=== PATIENT | female | born 1980 | race Caucasian/White ===

== ENCOUNTER 2016-12-12 16:04 | Emergency (ER) | payer MEDICAID ==
[~2016-12-12] VITALS: Ht 162.6 cm; Wt 131.5 kg
[~2016-12-12 16:04] MED LIST: CEPH-91; SULF400T11
[2016-12-12 17:00] LABS: Urine Bilirubin Negative (Negative); Urine Blood Negative /uL (Negative); Urine Color Yellow (Yellow); Urine Glucose Normal (Normal); Urine Hyaline Cast FEW /lpf (0 - 2); Urine Ketone TRACE (Negative); Urine Mucus FEW (None Seen); Urine Nitrite Negative (Negative); Urine RBC 1 /hpf (0 - 4); Urine Squamous Epithelial Cell MOD /hpf (<5); Urine Urobilinogen Normal (Negative); Urine pH 5.5 (5.0-8.0)
[2016-12-12 17:03] LABS: Basophils # (auto) 0 uL; Basophils % (auto) 0.2 % (0.0-2.0); Eosinophils # (auto) 0.1 uL; Eosinophils % (auto) 0.7 % (0.0-7.0); Hemoglobin 13.7 g/dL (12.2-16.2); Lymphocytes # (auto) 1.7 uL; Lymphocytes % (auto) 18.7 % (10.0-50.0); Mean Corpuscular Hemoglobin 30.1 pg (28.0-32.0); Mean Corpuscular Hgb Conc. 34.3 g/dL (32.0-36.0); Mean Corpuscular Volume 87.8 fL (80.0-100.0); Mean Platelet Volume 8.2 fL (6.9-10.8); Monocytes # (auto) 0.4 uL; Monocytes % (auto) 4.2 % (0.0-12.0); Neutrophils # (auto) 6.8 uL; Neutrophils % (auto) 76.2 % (37.0-80.0); Nucleated Red Blood Cells % 0.1 %; Platelet Count (auto) 210 10^3/uL (140-450); Red Cell Distribution Width 13.4 % (11.8-14.3)
[2016-12-12] MEDS ORDERED: SODIUM CHLORIDE 0.9% 500 ML IVB ONE (17:08)
[2016-12-12] MEDS ORDERED: HYDROmorphone HCL 2 MG/ML VL IV ONE (17:15)
[2016-12-12] MEDS ORDERED: ONDANSETRON HCL 4 MG/2 ML VIAL IV ONE (17:15)
[2016-12-12 17:22] LABS: Albumin 3.6 g/dL (3.4-5.0); Alkaline Phosphatase 81 U/L (45-117); Anion Gap 6 (5-15); Aspartate Aminotransferase 38 U/L (15-37); Bilirubin, Total 0.6 mg/dL (0.2-1.0); Blood Urea Nitrogen 6 mg/dL (7-18); Calcium 8.5 mg/dL (8.5-10.1); Carbon Dioxide 26 mmol/L (21-32); Chloride 107 mmol/L (98-107); GFR African American 200 mL/min; GFR Non-African American 165 mL/min; Glucose 122 mg/dL (74-106); Sodium 139 mmol/L (136-145); Total Protein 7.3 g/dL (6.4-8.2)
[2016-12-12 17:35] VITALS: BP 118/87
== END 2016-12-12 19:05 | disposition home or self-care (01) ==
LOC: ER 16:08
DX: R10.12 Left upper quadrant pain (principal); J45.909 Unspecified asthma, uncomplicated; Z90.49 Acquired absence of other specified parts of digestive tract; Z88.6 Allergy status to analgesic agent; R53.1 Weakness
CPT/HCPCS: 36415; 74176; 80053; 81001; 81025; 83690; 84484; 84702; 85025; 94761; 96361; 96374; 96375; 99285; J1170; J2405; J7040

== ENCOUNTER 2017-05-13 11:34 | Inpatient (IN) | payer MEDICAID ==
[~2017-05-13] VITALS: Ht 162.6 cm; Wt 149.0 kg
[2017-05-13 12:40] LABS: Basophils # (auto) 0 uL; Basophils % (auto) 0.4 % (0.0-2.0); Eosinophils # (auto) 0.1 uL; Hematocrit 38.2 % (36.0-46.0); Hemoglobin 13.1 g/dL (12.2-16.2); Lymphocytes # (auto) 2.8 uL; Lymphocytes % (auto) 26.6 % (10.0-50.0); Mean Corpuscular Hemoglobin 30.5 pg (28.0-32.0); Mean Corpuscular Hgb Conc. 34.2 g/dL (32.0-36.0); Mean Corpuscular Volume 89.1 fL (80.0-100.0); Monocytes # (auto) 0.5 uL; Monocytes % (auto) 5.1 % (0.0-12.0); Neutrophils % (auto) 66.9 % (37.0-80.0); Nucleated Red Blood Cells % 0.1 %; Platelet Count (auto) 200 10^3/uL (140-450); Red Blood Cells 4.28 10^6/uL (4.0-5.20); Red Cell Distribution Width 14.2 % (11.8-14.3); White Blood Cell 10.4 10^3/uL (4.4-10.8)
[2017-05-13 13:00] LABS: Albumin 3.5 g/dL (3.4-5.0); BUN/Creatinine Ratio 12.7; Calcium 8.4 mg/dL (8.5-10.1); Potassium 3.8 mmol/L (3.5-5.1)
[2017-05-13 13:03] LABS: Bilirubin, Total 0.4 mg/dL (0.2-1.0); Total Protein 7.2 g/dL (6.4-8.2)
[2017-05-13] MEDS ORDERED: SODIUM CHLORIDE 0.9% 1,000 ML IV ONE (14:05)
[2017-05-13] MEDS ORDERED: MORPHINE SULFATE 4 MG/ML SYR/VIAL IV ONE (14:15)
[2017-05-13] MEDS ORDERED: ONDANSETRON HCL 4 MG/2 ML VIAL IV ONE ×2 (14:15→21:15)
[2017-05-13 14:40] LABS: INR 0.91 (0.9-1.15); Partial Thromboplastin Time 27.3 sec (22.64-33.71); Prothrombin Time 9.9 sec (9.37-12.3)
[2017-05-13] MEDS ORDERED: ONDANSETRON HCL 4 MG/2 ML VIAL IV PRN (15:30)
[2017-05-13] MEDS ORDERED: ACETAMINOPHEN 325 MG TAB PO PRN (15:30)
[2017-05-13] MEDS: SODIUM CHLORIDE 0.9% 1,000 ML IV SCH ×3 (15:47→23:32)
[2017-05-13] MEDS: MORPHINE SULFATE 4 MG/ML SYR/VIAL IV PRN ×5 (16:31→23:52)
[2017-05-13] MEDS ORDERED: CYA100I PO (18:21)
[2017-05-13] MEDS ORDERED: PREN-96 PO (18:21)
[2017-05-13] MEDS ORDERED: ceFAZolin 1GM/50ML 50 ML IV ONE ×2 (18:46→19:45)
[2017-05-13] MEDS ORDERED: NEOSTIGMINE 1 MG/ML INJ (10mg/10ML VIAL) IV ONE (19:12)
[2017-05-13] MEDS ORDERED: GLYCOPYRROLATE 0.2 MG/ML 1ML VIAL IV ONE (19:12)
[2017-05-13] MEDS ORDERED: fentaNYL CITRATE 5 ML ONE (19:13)
[2017-05-13] MEDS ORDERED: PROPOFOL 10 MG/ML 20 ML IV ONE (19:13)
[2017-05-13] MEDS ORDERED: MIDAZOLAM HCL 1MG/1ML-2 ML VIAL ONE (19:13)
[2017-05-13] MEDS ORDERED: ROCURONIUM 10MG/ML 10ML VIAL IV ONE (19:13)
[2017-05-13] MEDS ORDERED: SUCCINYLCHOLINE CHLORIDE 20 MG/ML 10ML VIAL IV ONE (19:26)
[2017-05-13] MEDS ORDERED: VASOPRESSIN 20 UNIT/ML ONE (19:45)
[2017-05-13] MEDS ORDERED: BUPIVACAINE 0.25% INJ 50ML VIAL ONE (20:45)
[2017-05-13] MEDS ORDERED: LIDOCAINE 1% HCL (LOCAL ANESTH.) INJ 20ML MDV ONE (20:45)
[2017-05-13] MEDS ORDERED: ePHEDrine SULFATE 50 MG/ML AMP IV PRN (21:15)
[2017-05-13] MEDS ORDERED: hydrALAZINE HCL 20 MG/ML VL IV PRN (21:15)
[2017-05-13 22:10] VITALS: BP 109/53
[2017-05-13 23:19] LABS: Basophils # (auto) 0 uL; Basophils % (auto) 0.2 % (0.0-2.0); Eosinophils # (auto) 0 uL; Hematocrit 35.9 % (36.0-46.0); Hemoglobin 12.2 g/dL (12.2-16.2); Lymphocytes # (auto) 0.7 uL; Lymphocytes % (auto) 4.7 % (10.0-50.0); Mean Corpuscular Hemoglobin 30.3 pg (28.0-32.0); Mean Corpuscular Volume 89.2 fL (80.0-100.0); Monocytes # (auto) 0.3 uL; Monocytes % (auto) 1.9 % (0.0-12.0); Neutrophils # (auto) 13.8 uL; Neutrophils % (auto) 93.2 % (37.0-80.0); Platelet Count (auto) 164 10^3/uL (140-450); Red Blood Cells 4.02 10^6/uL (4.0-5.20); Red Cell Distribution Width 14.1 % (11.8-14.3); White Blood Cell 14.8 10^3/uL (4.4-10.8)
[2017-05-14] MEDS: MORPHINE SULFATE 4 MG/ML SYR/VIAL IV PRN ×11 (01:56→21:41)
[2017-05-14] MEDS: SODIUM CHLORIDE 0.9% 1,000 ML IV SCH ×7 (03:01→23:45)
[2017-05-14 05:00] VITALS: BP 104/54
[2017-05-14 06:51] LABS: Basophils # (auto) 0 uL; Eosinophils # (auto) 0 uL; Hematocrit 34.9 % (36.0-46.0); Hemoglobin 11.9 g/dL (12.2-16.2); Lymphocytes # (auto) 0.6 uL; Lymphocytes % (auto) 4.6 % (10.0-50.0); Mean Corpuscular Hemoglobin 30.5 pg (28.0-32.0); Mean Corpuscular Hgb Conc. 34.1 g/dL (32.0-36.0); Mean Corpuscular Volume 89.3 fL (80.0-100.0); Monocytes # (auto) 0.2 uL; Monocytes % (auto) 1.7 % (0.0-12.0); Neutrophils # (auto) 11.5 uL; Neutrophils % (auto) 93.7 % (37.0-80.0); Platelet Count (auto) 177 10^3/uL (140-450); Red Blood Cells 3.91 10^6/uL (4.0-5.20); Red Cell Distribution Width 13.9 % (11.8-14.3); White Blood Cell 12.3 10^3/uL (4.4-10.8)
[2017-05-14 08:00] VITALS: BP 106/64
[2017-05-14 09:00] VITALS: BP 106/64
[2017-05-14 13:00] VITALS: BP 104/51
[2017-05-14 20:00] VITALS: BP 131/77
[2017-05-14 22:00] VITALS: BP 131/77
[2017-05-15] MEDS: MORPHINE SULFATE 4 MG/ML SYR/VIAL IV PRN ×8 (00:41→21:51)
[2017-05-15 05:00] VITALS: BP 115/67
[2017-05-15] MEDS: SODIUM CHLORIDE 0.9% 1,000 ML IV SCH ×5 (07:06→23:30)
[2017-05-15 08:59] VITALS: BP 130/74
[2017-05-15 11:32] VITALS: BP 122/68
[2017-05-15] MEDS: SIMETHICONE 80 MG CHEWABLE TABLET PO SCH ×3 (15:13→21:51)
[2017-05-15 17:23] VITALS: BP 124/69
[2017-05-15 20:00] VITALS: BP 122/62
[2017-05-15 22:07] VITALS: BP 122/62
[2017-05-16] VITALS (7 sets, daily range): BP systolic 102–133; BP diastolic 54–92
[2017-05-16] MEDS: MORPHINE SULFATE 4 MG/ML SYR/VIAL IV PRN ×9 (00:55→22:41)
[2017-05-16] MEDS: SODIUM CHLORIDE 0.9% 1,000 ML IV SCH ×3 (03:33→15:39)
[2017-05-16] MEDS: SIMETHICONE 80 MG CHEWABLE TABLET PO SCH ×4 (06:53→21:38)
[2017-05-16] MEDS: DOCUSATE SOD 100 MG CAP PO SCH ×2 (10:37→21:38)
[2017-05-16] MEDS ORDERED: HYDROcodone-ACET 5/325MG TAB PO PRN (13:15)
[2017-05-17] MEDS: MORPHINE SULFATE 4 MG/ML SYR/VIAL IV PRN ×7 (01:34→21:41)
[2017-05-17] MEDS: SODIUM CHLORIDE 0.9% 1,000 ML IV SCH ×4 (01:52→23:30)
[2017-05-17] MEDS: SIMETHICONE 80 MG CHEWABLE TABLET PO SCH ×5 (06:29→21:41)
[2017-05-17 08:11] VITALS: BP 101/59
[2017-05-17] MEDS: HYDROcodone-ACET 10/325MG TAB PO PRN ×3 (08:53→22:00)
[2017-05-17] MEDS: DOCUSATE SOD 100 MG CAP PO SCH ×2 (09:48→21:28)
[2017-05-17 11:33] VITALS: BP 105/55
[2017-05-17 17:00] VITALS: BP 141/75
[2017-05-17 20:00] VITALS: BP 138/82
[2017-05-17 22:00] VITALS: BP 138/68
[2017-05-18] MEDS: MORPHINE SULFATE 4 MG/ML SYR/VIAL IV PRN ×5 (00:39→16:17)
[2017-05-18] MEDS: HYDROcodone-ACET 10/325MG TAB PO PRN ×2 (04:28→12:50)
[2017-05-18 05:38] VITALS: BP 133/77
[2017-05-18] MEDS: SIMETHICONE 80 MG CHEWABLE TABLET PO SCH ×2 (06:25→12:45)
[2017-05-18] MEDS: SODIUM CHLORIDE 0.9% 1,000 ML IV SCH ×2 (07:30→15:30)
[2017-05-18 09:00] VITALS: BP 126/75
[2017-05-18] MEDS: DOCUSATE SOD 100 MG CAP PO SCH (10:00)
[2017-05-18 13:00] VITALS: BP 137/84
== END 2017-05-18 18:00 | disposition home or self-care (01) | DRG 540 ==
LOC: ER 11:34 → TELE 11:35 → TELE-WESTW 22:07 → WEST WING 05-17 19:49
PROVIDERS: ADMIT Obstetrics & Gynecology; ATTEND Obstetrics & Gynecology
PROC: 10D00Z1 Extraction of Products of Conception, Low, Open Approach (ICD-10-PCS; principal; 2017-05-13 19:12)
PROC: 0WJJ4ZZ Inspection of Pelvic Cavity, Percutaneous Endoscopic Approach (ICD-10-PCS; 2017-05-13 19:12)
PROC: 0DNW0ZZ Release Peritoneum, Open Approach (ICD-10-PCS; 2017-05-13 19:12)
DX: O00.101 Right tubal pregnancy without intrauterine pregnancy (principal); K66.1 Hemoperitoneum; Z68.43 Body mass index [BMI] 50.0-59.9, adult; O99.211 Obesity complicating pregnancy, first trimester; K66.0 Peritoneal adhesions (postprocedural) (postinfection); E66.01 Morbid (severe) obesity due to excess calories; J45.909 Unspecified asthma, uncomplicated; G89.18 Other acute postprocedural pain; Z91.19 Patient's noncompliance with other medical treatment and regimen; Z88.8 Allergy status to other drugs, medicaments and biological substances; Z79.899 Other long term (current) drug therapy; O99.511 Diseases of the respiratory system complicating pregnancy, first trimester; Z3A.13 13 weeks gestation of pregnancy; O26.891 Other specified pregnancy related conditions, first trimester
CPT/HCPCS: 36415; 71046; 76801; 76817; 80053; 84702; 85025; 85610; 85730; 86850; 86900; 86901; 87086; 93005; 94761; 96361; 96374; 96375; J0330; J0690; J2001; J2250; J2405; J2704; J3490